=== PATIENT | female | born 1980 ===

== ENCOUNTER 2018-02-16 09:46 | Emergency (ER) | payer OTHER ==
[~2018-02-16] VITALS: Ht 157.5 cm; Wt 53.1 kg
== END 2018-02-16 11:53 | disposition home or self-care (01) ==
LOC: ER 09:46
DX: T22.111A Burn of first degree of right forearm, initial encounter (principal); X10.2XXA Contact with fats and cooking oils, initial encounter; Y93.89 Activity, other specified; Y92.098 Other place in other non-institutional residence as the place of occurrence of the external cause; Y99.8 Other external cause status